=== PATIENT | female | born 1955 | race Caucasian/White ===

== ENCOUNTER 2019-07-04 21:07 | Inpatient (IN) ==
[2019-07-04] MEDS ORDERED: DIPH,PERTUSS(ACELL),TET VAC/PF 0.5 ML SYRINGE IM ONE (21:28)
--- NOTE | 2019-07-04 21:30 | Emergency Department Note ---
Fall HPI - General Chief Complaint: Fall Stated Complaint: fall Time Seen by Provider: 07/04/19 21:24 Source: patient Mode of arrival: ambulatory - History of Present Illness HPI Narrative: 64-year-old female presents with right hip pain. Onset about an hour ago. She was trying to kill a spider when she kind of tripped and fell on the cement landing on her right hip. Has severe pain if she tries to ambulate or lift the right leg at all. Pain is primarily in her hip but does radiate down the right leg about residential down her thigh. No numbness or tingling. Did not hit her head. No loss consciousness. No head, neck, or back pain. No numbness or tingling. No treatments prior to arrival. She does have a small abrasion to the right hand which she cleaned and put a Band-Aid on at home. Unknown last tetanus. - Related Data Home Medications Medication Instructions Recorded Confirmed No Known Home Meds 07/04/19 07/04/19 Allergies Allergy/AdvReac Type Severity Reaction Status Date / Time codeine AdvReac Mild Vomiting Verified 07/05/19 05:49 Review of Systems All systems ED: reviewed and negative except as stated. 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 Absent: conjunctival injection ENT: Present: mucous membranes moist Chest: Present: symmetric chest wall rise Respiratory: Present: normal lung sounds bilaterally. Absent: respiratory distress, rales/crackles, wheezes, accessory muscle use Cardiovascular: Present: regular rate, normal heart sounds Extremities: Present: normal inspection, tenderness (righ hip pain, difuse. pain with any Movement active and passive and greatly limited active and passive range of motion related to pain. No step-off or deformity. No shortening or rotation.), normal capillary refill. Absent: joint swelling Neurological: Present: alert, oriented X3. Absent: normal gait, motor sensory deficit Psychiatric: Present: normal affect, normal mood Skin: Present: warm, dry, normal color. Absent: intact (Nickel size superficial abrasion to the dorsal surface of the right hand) Course Course Narrative: @[address] Black due to shift change. pt does not want anything for pain at this time. 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 Vital Signs Pulse Rate 72 07/04/19 21:08 Respiratory Rate 18 07/04/19 21:08 Blood Pressure 147/80 07/04/19 21:08 Pulse Oximetry (%) 96 07/04/19 21:08 Temperature 97.9 F 07/05/19 08:00 Pulse Rate 69 07/05/19 08:00 Respiratory Rate 18 07/05/19 08:00 Blood Pressure 148/79 07/05/19 08:00 Pulse Oximetry (%) 92 07/05/19 08:00 Fall - Lab Data Result diagrams: 07/05/19 04:23 07/05/19 04:23 Lab Results 07/04/19 07/04/19 Range/Units 22:49 22:49 WBC 6.4 (4.5-11.0) K/mcL RBC 5.06 (4.00-5.20) M/mcL Hgb 16.4 H (12.0-15.0) g/dL Hct 48.6 H (36.0-48.0) % MCV 96.1 (80.0-100.0) fL MCH 32.4 (26.0-34.0) pg MCHC 33.7 (31.0-36.0) g/dL RDW 13.6 (11.5-14.5) % Plt Count 382 (140-440) K/mcL MPV 7.3 L (7.4-10.4) fL Gran % 61.9 (38.0-78.0) % Lymph % (Auto) 28.7 (15.5-49.0) % [place] % (Auto) 7.9 (1.0-12.0) % Eos % (Auto) 1.1 (0.0-7.0) % Baso % (Auto) 0.4 (0.0-2.0) % Gran # 3.9 (1.8-8.0) K/mcL Lymph # (Auto) 1.8 (1.5-4.8) K/mcL [place] # (Auto) 0.5 (0.1-0.9) K/mcL Eos # (Auto) 0.1 (0.0-0.7) K/mcL Baso # (Auto) 0 (0.0-0.3) K/mcL Sodium 138 (133-145) mmol/L Potassium 4.0 (3.3-5.1) mmol/L Chloride 95 L (96-108) mmol/L Carbon Dioxide 28 (22-30) mmol/L Anion Gap 15.0 (8-16) BUN 5 L (8-23) mg/dl Creatinine 0.6 (0.6-1.1) mg/dl GFR Calculation 96 Glucose 96 (70-105) mg/dL Calcium 9.4 (8.6-10.4) mg/dl Total Bilirubin 0.6 (0.0-1.0) mg/dL AST 17 (0-37) U/l ALT 13 (0-40) U/l Alkaline Phosphatase 73 (39-117) U/L Total Protein 7.8 (5.9-8.4) gm/dL Albumin 4.9 (3.2-5.2) gm/dL Globulin 2.9 (2.2-3.7) gm/dL Albumin/Globulin Ratio 1.7 (1.0-2.3) - Radiology Data Radiology results reviewed: Yes I reviewed the patient's radiology results. Disposition Pt seen by HAND KNITTER/PA only: No Clinical Impression: Fall, Right hip pain Disposition: Xfer As Inpt ([facility])
--- NOTE | 2019-07-04 22:35 | Emergency Department Note ---
ED Note Addendum Note Addendum: This patient has a subcapital hip fracture on the right on her CT scan. I discussed case with Dr. Murray and Dr. Estrada will admit to the hospital. We will initiate the preop work-up with labs chest x-ray EKG etc. Diagnosis is right hip fracture.
[2019-07-04] MEDS ORDERED: 0.9 % SODIUM CHLORIDE 250 ML IV SCH (22:45)
[2019-07-04 23:52] LABS: Basophils # (Auto) 0 K/mcL (0.0-0.3); Basophils % (Auto) 0.4 % (0.0-2.0); Eosinophils # (Auto) 0.1 K/mcL (0.0-0.7); Eosinophils % (Auto) 1.1 % (0.0-7.0); Granulocytes % (Auto) 61.9 % (38.0-78.0); Hematocrit 48.6 % (36.0-48.0); Hemoglobin 16.4 g/dL (12.0-15.0); Lymphocytes # (Auto) 1.8 K/mcL (1.5-4.8); Lymphocytes % (Auto) 28.7 % (15.5-49.0); Mean Cell Volume 96.1 fL (80.0-100.0); Mean Corpuscular HGB Conc 33.7 g/dL (31.0-36.0); Mean Platelet Volume 7.3 fL (7.4-10.4); Monocytes # (Auto) 0.5 K/mcL (0.1-0.9); Monocytes % (Auto) 7.9 % (1.0-12.0); Platelet Count 382 K/mcL (140-440); RBC 5.06 M/mcL (4.00-5.20); Red Cell Distribution Width 13.6 % (11.5-14.5); WBC 6.4 K/mcL (4.5-11.0)
[2019-07-05 00:09] LABS: ALT/SGPT 13 U/l (0-40); AST/SGOT 17 U/l (0-37); Albumin 4.9 gm/dL (3.2-5.2); Albumin/Globulin Ratio 1.7 (1.0-2.3); Alkaline Phosphatase 73 U/L (39-117); Bilirubin,Total 0.6 mg/dL (0.0-1.0); Blood Urea Nitrogen 5 mg/dl (8-23); Calcium 9.4 mg/dl (8.6-10.4); Carbon Dioxide 28 mmol/L (22-30); Chloride 95 mmol/L (96-108); Globulin 2.9 gm/dL (2.2-3.7); Glomerular Filtration Rate 96; Glucose 96 mg/dL (70-105)
[2019-07-05] MEDS ORDERED: traZODone HCL 50 MG TABLET PO PRN (00:29)
[2019-07-05] MEDS ORDERED: HYDROmorphone 2 MG/ML VIAL IV PRN (00:29)
[2019-07-05] MEDS ORDERED: POTASSIUM CHLORIDE 20 MEQ PACKET PO PRN (00:29)
[2019-07-05] MEDS ORDERED: MAGNESIUM SULFATE 2 GM/50 ML BAG IV PRN (00:29)
[2019-07-05] MEDS ORDERED: ONDANSETRON 4 MG/2 ML VIAL IV PRN ×2 (00:29→15:54)
[2019-07-05] MEDS ORDERED: guaiFENesin/CODEINE 10 ML UDC PO PRN (00:29)
[2019-07-05] MEDS ORDERED: ACETAMINOPHEN 750 MG/75 ML BOTTLE IV PRN (00:29)
[2019-07-05] MEDS ORDERED: hydrALAZINE 20 MG/ML VIAL IV PRN (00:29)
[2019-07-05] MEDS ORDERED: ACETAMINOPHEN 325 MG TABLET PO PRN (00:29)
[2019-07-05] MEDS: 0.9 % SODIUM CHLORIDE 1,000 ML IV SCH ×2 (01:12→17:50)
[2019-07-05 05:45] LABS: Hematocrit 45.1 % (36.0-48.0); Hemoglobin 15.1 g/dL (12.0-15.0); Mean Cell Volume 97.1 fL (80.0-100.0); Mean Corpuscular HGB Conc 33.4 g/dL (31.0-36.0); Mean Platelet Volume 7.1 fL (7.4-10.4); Platelet Count 316 K/mcL (140-440); RBC 4.65 M/mcL (4.00-5.20); Red Cell Distribution Width 13.3 % (11.5-14.5)
[2019-07-05 06:00] LABS: ALT/SGPT 10 U/l (0-40); AST/SGOT 13 U/l (0-37); Albumin 4.1 gm/dL (3.2-5.2); Albumin/Globulin Ratio 1.8 (1.0-2.3); Alkaline Phosphatase 65 U/L (39-117); Bilirubin,Direct < 0.2 mg/dL (0.0-0.3); Bilirubin,Total 0.8 mg/dL (0.0-1.0); Blood Urea Nitrogen 6 mg/dl (8-23); Calcium 9.1 mg/dl (8.6-10.4); Carbon Dioxide 29 mmol/L (22-30); Chloride 101 mmol/L (96-108); Globulin 2.3 gm/dL (2.2-3.7); Glomerular Filtration Rate 102; Glucose 90 mg/dL (70-105); Lactate Dehydrogenase 165 U/L (94-250); Phosphorous 3.7 mg/dL (2.7-4.5); Triglycerides 52 mg/dl (<150); Uric Acid 4.2 mg/dL (2.5-8.0)
[2019-07-05 06:15] LABS: Band Neutrophils % 1 % (0-10); Eosinophils % (Manual) 4 % (0-7); Lymphocytes % 17 % (15-49); Monocytes % (Manual) 14 % (1-12); Platelet Estimate NORMAL (NORMAL); RBC Morphology NORMAL (NORMAL); Segmented Neutrophils % 64 % (38-78)
[2019-07-05] MEDS: 0.9 % SODIUM CHLORIDE 10 ML SYRINGE IV SCH ×3 (06:54→22:19)
[2019-07-05] MEDS: MULTIVIT,THER IRON,CA,FA & MIN 1 TABLET PO SCH (07:07)
[2019-07-05] MEDS: DOCUSATE SODIUM 100 MG CAPSULE PO SCH ×2 (07:07→21:15)
[2019-07-05] MEDS: HEPARIN 5,000 UNIT/ML VIAL SQ SCH ×2 (07:26→21:35)
--- NOTE | 2019-07-05 07:47 | XRay Report ---
HISTORY: Fell with right hip pain FINDINGS: There is an acute subcapital fracture in the right femoral neck. There is mild impaction along the lateral side. The femoral head is normally positioned within the acetabulum. There is no arthritis. The remainder of the pelvis is normal with no other fracture present. There is degenerative disc disease and arthritis in the lumbar spine at L4-5 and L5-S1. IMPRESSION: nondisplaced subcapital fracture of the right femoral neck Interpreted and Authenticated by: Regulo Dias 07/05/19
--- NOTE | 2019-07-05 07:50 | Cat Scan Report ---
History: Fell with right hip pain and fracture femoral neck TECHNIQUE: The pelvis was imaged without contrast at 2.5 mm intervals. Sagittal and coronal reformats were created. Radiation exposure was limited using dose reduction technology. FINDINGS: There is a subtle acute subcapital fracture the right femoral neck. There is mild impaction along the lateral side. Femoral head is slightly rotated. The joint space is normal in width. There is no spur formation or bone erosion. There is edema or hematoma around the fracture line. No other pelvic fracture is present. There is moderately severe disc space narrowing with spur formation at L4-5 and L5-S1. Left hip is normal. SI joints are normal. There is mild arthritis at the symphysis pubis. There are are scattered diverticula in the sigmoid colon. Uterus and ovaries are atrophic. IMPRESSION: Nondisplaced subcapital fracture of the right femoral neck Interpreted and Authenticated by: Regulo Dias 07/05/19
--- NOTE | 2019-07-05 09:22 | Internal Med History&Physical ---
Medical - H&P: HPI Patient information: Note initiated : 07/04/19 at 23:22 pm Service Date, if different from initiated Date: [] Patient: Raegan Flowers 64 y/o F admitted on 07/05/19 for Fall. Chief Complaint: [] Chief complaint: Fall with right hip pain History of present illness: Ms. Flowers is a 64 year old F who presented to the ER after sustaining a fall landing on her right side. Patient was with her daughter enjoying the evening when she saw a spider and while attempting to swap with a flip-flop fell backwards landing on her hip. She did not sustain any other injuries or trauma to the head. She was brought into the ER. Initial work-up was consistent with right hip fracture. Orthopedics were consulted. Initial labs were unremarkable with a hemoglobin of 16.4 creatinine 1.5. Patient carries a history of pack and a half smoking but does not carry any prior major medical history or history of surgeries, CVA or coronary artery disease. She occasionally drinks alcohol. Is fairly independent at baseline She denies recent hospitalizations She denies substance abuse or changes in medication. Denies fever chills or precipitating events prior to fall including lighth eadedness dizziness chest pain or palpitation Review of systems A 10 point review system was performed and is negative except for as above Medical - H&P: PMH Medical history: Nonsignificant Except for aortic aneurysm Surgical history: Hysterectomy Tonsillectomy Smoking status: Current every day smoker (Back and a half) Drug use: none Alcohol use: sober Medical - H&P: Meds Home Medications Medication Instructions Recorded Confirmed Type No Known Home Meds 07/04/19 07/04/19 History Allergies Allergy/AdvReac Type Severity Reaction Status Date / Time codeine AdvReac Mild Vomiting Verified 07/05/19 05:49 Medical - H&P: Exam - Constitutional Vitals: Temp Pulse Resp BP Pulse Ox 97.9 F 69 18 148/79 92 07/05/19 08:00 07/05/19 08:00 07/05/19 08:00 07/05/19 08:00 07/05/19 08:00 General appearance: no acute distress Exam: Alert and oriented Head normocephalic Oral cavity dry No ear nose discharge Eye movement symmetrical Neck no lymph adenopathy S1-S2 regular rhythm no murmur Diminished breath sounds bases Abdomen soft nontender Lower extremity no cyanosis clubbing, right lower extremity externally rotated and shortened Skin no suspicious lesion Psych alert cooperative Neuro nonfocal Medical - H&P: Reslt - Labs CBC & Chem 7: 07/05/19 04:23 07/05/19 04:23 Labs: Short CBC 07/04/19 07/05/19 Range/Units 22:49 04:23 WBC 6.4 8.0 (4.5-11.0) K/mcL Hgb 16.4 H 15.1 H (12.0-15.0) g/dL Hct 48.6 H 45.1 (36.0-48.0) % Plt Count 382 316 (140-440) K/mcL BMP 07/04/19 07/05/19 22:49 04:23 Sodium 138 141 Potassium 4.0 4.1 Chloride 95 L 101 Carbon Dioxide 28 29 BUN 5 L 6 L Creatinine 0.6 0.5 L Glucose 96 90 Calcium 9.4 9.1 Liver Function 07/04/19 07/05/19 Range/Units 22:49 04:23 Total Bilirubin 0.6 0.8 (0.0-1.0) mg/dL Direct Bilirubin < 0.2 (0.0-0.3) mg/dL GGT 15 (5-36) U/L AST 17 13 (0-37) U/l ALT 13 10 (0-40) U/l Alkaline Phosphatase 73 65 (39-117) U/L Albumin 4.9 4.1 (3.2-5.2) gm/dL Medical - H&P: A/P (1) Closed right hip fracture Current visit: Yes Status: Acute * Closed right hip fracture-orthopedic consulted. Keep n.p.o. after midnight * Pain management-continue as needed opioids * Preoperative risk evaluation-based on RCRI [place] Heart Association stratification patient would fall under high risk category based on surgery specific risk however patient does not carry history of coronary artery disease/CVA/insulin-dependent diabetes or renal insufficiency. She has an excellent baseline functional status. He would be a great postoperative rehab candidate. There are no modifiable risk factor at this time. Patient agrees to proceed with surgery. Surgery and anesthesia specific risks will be discussed by individual care providers. * CODE STATUS full code * Prophylaxis will be as per orthopedics per protocol post hip replacement Plan * Inpatient admission * Pain management * Keep n.p.o. * Review postop * Aggressive postop PT OT/nutrition support
--- NOTE | 2019-07-05 09:32 | Internal Med Progress Note ---
Medical - PN: Subj Patient information: Note initiated : 07/05/19 at 9:30 am Service Date, if different from initiated Date: [] Patient: Raegan Flowers 64 y/o F admitted on 07/05/19 for Fall. Chief Complaint: [] Interval history: Ms. Flowers is a 64 year old F who presented to the ER after sustaining a fall landing on her right side. Patient was with her daughter enjoying the evening when she saw a spider and while attempting to swap with a flip-flop fell backwards landing on her hip. She did not sustain any other injuries or trauma to the head. She was brought into the ER. Initial work-up was consistent with right hip fracture. Orthopedics were consulted. Initial labs were unremarkable with a hemoglobin of 16.4 creatinine 1.5. Patient carries a history of pack and a half smoking but does not carry any prior major medical history or history of surgeries, CVA or coronary artery disease. She occasionally drinks alcohol. Patient recently lost her brother and is going to acute brief episode. She relapsed back on smoking after quitting for 20 days due to stress. She is fairly independent at baseline able to perform activities of daily living herself. She denies recent hospitalizations She denies substance abuse or changes in medication. Denies fever chills or precipitating events prior to fall including lightheadedness dizziness chest pain or palpitation 07/04-patient doing well. On as needed opioids with pain well controlled. Await surgery this afternoon. Daughter at bedside. Minimal anxiety. No overnight concerns per staff - Constitutional Vitals: Vital Signs Temp Pulse Resp BP Pulse Ox 97.9 F 69 18 148/79 92 07/05/19 08:00 07/05/19 08:00 07/05/19 08:00 07/05/19 08:00 07/05/19 08:00 Period Temp Pulse Resp BP Sys/Youngblood Pulse Ox Last 24 Hr 97.7 F-99.2 F 64-72 - 131-162/78-90 92-96 Intake and Output 07/04/19 07/05/19 07/05/19 21:59 05:59 13:59 Output Total 950 Balance -950 Weight 110 lb 112 lb 1.6 oz Intake & Output: Intake & Output 07/04/19 07/05/19 07/05/19 21:59 05:59 13:59 Output Total 950 Balance -950 Weight 110 lb 112 lb 1.6 oz Output: Urine Catheter Amount 950 Other: Urine Appearance Clear Uretheral (Paige) Clear Urine Color Uretheral (Paige) Pale General appearance: no acute distress Exam: Minimal anxiety No lymphedema Chest clear to auscultation Nonlabored breathing Medical - PN: Obj Da - Labs CBC & Chem 7: 07/05/19 04:23 07/05/19 04:23 Labs: Abnormal Lab Results 07/05/19 07/05/19 07/04/19 04:23 04:23 22:49 Hgb 15.1 H Hct MPV 7.1 L Monocytes % (Manual) 14 H Chloride 95 L BUN 6 L 5 L Creatinine 0.5 L 07/04/19 22:49 Hgb 16.4 H Hct 48.6 H MPV 7.3 L Monocytes % (Manual) Chloride BUN Creatinine Meds: Medications Acetaminophen (Tylenol) 650 mg PO Q4-6HP PRN PRN Reason: PAIN/FEVER > 101 Docusate Sodium (Colace) 100 mg PO BID [facility] Last Admin: 07/05/19 07:07 Dose: Not Given Documented by: Guaifenesin/Codeine Phosphate (Robitussin Ac) 10 ml PO Q4HP PRN PRN Reason: Cough Heparin Sodium (Porcine) (Heparin) 5,000 unit SQ Q12 [facility] Last Admin: 07/05/19 07:26 Dose: Not Given Documented by: Hydralazine HCl (Apresoline) 10 mg IV Q4-6HP PRN PRN Reason: Hypertension Hydromorphone HCl (Dilaudid) 0 mg IV Q4HP PRN PRN Reason: PAIN LEVEL > 6 Sodium Chloride (Sodium Chloride 0.9%) 1,000 mls @ 50 mls/hr IV .Q20H [facility] Stop: 07/07/19 12:28 Last Admin: 07/05/19 01:12 Dose: 50 mls/hr Documented by: Acetaminophen (Ofirmev) 750 mg in 75 mls @ 150 mls/hr IV Q6HP PRN PRN Reason: PAIN/FEVER > 101 Magnesium Sulfate (Magnesium Sulfate) 2 gm in 50 mls @ 50 mls/hr IV UD PRN PRN Reason: MG = or < 1.7 Iron Carb/Multivit/[employer]ista/Folic Acid (Multivitamin W/Minerals) 1 tab PO DAILY [facility] Last Admin: 07/05/19 07:07 Dose: Not Given Documented by: Ondansetron HCl (Zofran) 4 mg IV Q4-6HP PRN PRN Reason: Nausea And Vomiting Potassium Chloride (Klor-Con) 40 meq PO DAILYP PRN PRN Reason: K+ < 3.5 Senna/Docusate Sodium (Senna Plus Tablet) 1 tab PO HS [facility] Sodium Chloride (Saline Flush) 10 ml IV Q8 [facility] Last Admin: 07/05/19 06:54 Dose: Not Given Documented by: Trazodone HCl (Desyrel) 50 mg PO HSP PRN PRN Reason: Insomnia Medical - PN: A/P - Time Spent With Patient Total time spent is greater than 50% in coordination of care (as documented) at patient's floor/unit and/or counseling patient: 15 - 24 minutes (1) Closed right hip fracture Status: Acute Assessment and plan: * Closed right hip fracture-orthopedic consulted. Surgery this afternoon. * Pain management-well controlled on as needed opioids * Preoperative risk evaluation-based on RCRI [place] Heart Association stratification patient would fall under high risk category based on surgery specific risk however patient does not carry history of coronary artery disease/CVA/insulin-dependent diabetes or renal insufficiency. She has an excellent baseline functional status. He would be a great postoperative rehab candidate. There are no modifiable risk factor at this time. Patient agrees to proceed with surgery. Surgery and anesthesia specific risks will be discussed by individual care providers. * CODE STATUS full code * Prophylaxis will be as per orthopedics per protocol post hip replacement Plan * Continue pain management * Keep n.p.o. * Await surgery * Target aggressive postop PT OT/nutrition support Current Visit: Yes
[2019-07-05] MEDS ORDERED: LORazepam 2 MG/ML VIAL IV PRN (11:11)
[2019-07-05] MEDS ORDERED: ceFAZolin 2 GM in DEXTROSE 5% IN WATER 50 ML IV SCH (14:15)
[2019-07-05] MEDS ORDERED: KETAMINE 100 MG/ML ML IV ONE (14:55)
[2019-07-05] MEDS ORDERED: LIDOCAINE HCL/PF 100 MG/5 ML SYRINGE IV ONE (14:55)
[2019-07-05] MEDS ORDERED: DEXAMETHASONE 10 MG/ML VIAL IV ONE (14:55)
[2019-07-05] MEDS ORDERED: GLYCOPYRROLATE 0.2 MG/ML VIAL IV ONE (14:55)
[2019-07-05] MEDS ORDERED: MIDAZOLAM 2 MG/2 ML VIAL IV ONE (14:55)
[2019-07-05] MEDS ORDERED: fentaNYL 100 MCG/2 ML VIAL IV ONE (14:55)
[2019-07-05] MEDS ORDERED: PROPOFOL 200 MG/20 ML VIAL IV ONE (14:55)
[2019-07-05] MEDS ORDERED: ONDANSETRON 4 MG/2 ML VIAL IV ONE (14:55)
--- NOTE | 2019-07-05 15:38 | Brief Operative Note ---
Date of procedure: 07/05/19 Pre-op diagnosis: R nondisplaced femoral neck fracture Post-op diagnosis: same Procedure: Percutaneous screw fixation of Right femoral neck fracture Grafts/Implants: Yes (3 6.5mm screws) Anesthesia: GLMA Findings: nondisplaced fracture Complications: none Surgeon: Khadar Murray [employer] Salesperson: Chris Burrows Estimated blood loss (cc): 20 Specimens Removed/Pathology: none sent Condition: stable Disposition: PACU
[2019-07-05] MEDS ORDERED: oxyCODONE/APAP 5/325MG TABLET PO PRN (15:45)
[2019-07-05] MEDS ORDERED: METHOCARBAMOL 1,000 MG/10 ML VIAL IV PRN (15:54)
[2019-07-05] MEDS ORDERED: LACTATED RINGERS 250 ML IV PRN (15:54)
[2019-07-05] MEDS ORDERED: ACETAMINOPHEN 1,000 MG/100 ML BOTTLE IV ONE (15:54)
[2019-07-05] MEDS ORDERED: BENZOCAINE/MENTHOL 1 LOZENGE PO PRN (15:54)
[2019-07-05] MEDS ORDERED: KETOROLAC 30 MG/ML VIAL IV PRN (15:54)
[2019-07-05] MEDS ORDERED: NALOXONE HCL 0.4 MG/ML VIAL IV PRN (15:54)
[2019-07-05] MEDS ORDERED: FLUMAZENIL 0.1 MG/ML ML IV PRN (15:54)
[2019-07-05] MEDS ORDERED: fentaNYL 100 MCG/2 ML VIAL IV PRN (15:54)
[2019-07-05] MEDS ORDERED: IPRATROPIUM/ALBUTEROL 3 ML AMPUL.NEB NEB PRN (15:54)
[2019-07-05] MEDS ORDERED: LACTATED RINGERS 1,000 ML IV SCH (16:00)
--- NOTE | 2019-07-05 16:05 | Operative Note ---
DATE OF OPERATION: 07/05/2019 PREOPERATIVE DIAGNOSIS: Right closed nondisplaced femoral neck fracture. POSTOPERATIVE DIAGNOSIS: Right closed nondisplaced femoral neck fracture. PROCEDURE PERFORMED: Percutaneous screw fixation of the right nondisplaced femoral neck fracture, placing three 6.5 mm cannulated screws. SURGEON: Khadar Murray M.D. DEPUTY FELONY CLERK: Barry Burrows PA-C. The PA's assistance was required for the safe and efficient completion of the entire case. This provider's expertise and technical skill were required throughout the case. The PA assisted with preoperative coordination, intraoperative retraction, wound closure, dressing and splint application, as well as postoperative documentation and care coordination. ANESTHESIA: General. DRAINS: None. SPECIMENS: None. COMPLICATIONS: None. BLOOD LOSS: 20 mL. POSTOPERATIVE CONDITION: Stable. INDICATIONS FOR SURGERY: This is a 64-year-old female who fell, injuring her right hip, and had difficulty bearing weight. She was taken to the emergency department last night and x-rays showed questionable fracture and a CT scan verified a nondisplaced femoral neck. FINDINGS AT SURGERY: As above. Post-screw fixation showed satisfactory hardware position and fracture alignment. PROCEDURE IN DETAIL: The patient had been seen preoperatively and informed consent had been obtained after discussion of risks and benefits of surgery. Risks including, but not limited to, bleeding; infection; injury to nerves, blood vessels, and other surrounding structures; anesthetic risks; nonunion or malunion of the fracture; failure of hardware fixation; possibility of developing avascular necrosis resulting in need for total hip arthroplasty in the future. She understood and wished to proceed. Correct operative site was marked, and the patient was taken to the operating room and general anesthesia induced. She was carefully positioned on the [place] table, and the right leg was placed in some gentle traction and slight internal rotation. Fluoro was brought in to verify fracture alignment and then the right hip was prepped and draped in normal sterile fashion. A time-out was performed verifying patient name, operative site, and plan. Shower curtain was used to cover skin surfaces and then using fluoroscopy, an entry point was chosen distal to the greater trochanter and proximal to the lower margin of the lesser trochanter. This was placed centered on the bone and then passed up along the inferior femoral neck and into the inferior femoral head. We checked lateral views and positioned the pin as central as possible. We then used the honeycomb drill guide and placed our two proximal pins, one posterior proximal and one anterior proximal. We verified pin placement on both views and then used depth gauge and placed three 6.5 cannulated screws. The two proximal screws did have to be switched out for 5 mm shorter. These were encroaching awfully close to the articular surface. Once we had all three in the position that we liked, we saved these views. Irrisept was irrigated, after a minute saline was irrigated, and then 2-0 Monocryl was used for subcutaneous and abel for skin. Local anesthetic injected. Sterile dressing was applied. The patient was then awakened, extubated, and transferred to recovery in stable condition. BJB:baron Job ID: [id number] Doc ID: [id number] Khadar Murray MD
[2019-07-05] MEDS ORDERED: WARFARIN 2.5 MG TABLET PO ONE (18:00)
[2019-07-05] MEDS ORDERED: SENNOSIDES/DOCUSATE SODIUM 1 TAB TABLET PO SCH (21:00)
[2019-07-05] MEDS: ceFAZolin 2 GM in DEXTROSE 5% IN WATER 50 ML IV SCH (23:10)
[2019-07-06] MEDS ORDERED: ceFAZolin 1 GM VIAL ONE ×2 (01:40→06:29)
[2019-07-06 05:40] LABS: Hematocrit 44.3 % (36.0-48.0); Hemoglobin 14.7 g/dL (12.0-15.0); Mean Cell Volume 97.7 fL (80.0-100.0); Mean Corpuscular HGB Conc 33.3 g/dL (31.0-36.0); Mean Platelet Volume 7.2 fL (7.4-10.4); Platelet Count 319 K/mcL (140-440); RBC 4.53 M/mcL (4.00-5.20); Red Cell Distribution Width 13.2 % (11.5-14.5)
[2019-07-06 05:55] LABS: ALT/SGPT 8 U/l (0-40); AST/SGOT 12 U/l (0-37); Albumin 3.4 gm/dL (3.2-5.2); Albumin/Globulin Ratio 1.4 (1.0-2.3); Alkaline Phosphatase 67 U/L (39-117); Bilirubin,Direct < 0.2 mg/dL (0.0-0.3); Bilirubin,Total 0.6 mg/dL (0.0-1.0); Blood Urea Nitrogen 6 mg/dl (8-23); Calcium 8.5 mg/dl (8.6-10.4); Carbon Dioxide 27 mmol/L (22-30); Chloride 98 mmol/L (96-108); Globulin 2.5 gm/dL (2.2-3.7); Glomerular Filtration Rate 102; Glucose 137 mg/dL (70-105); Lactate Dehydrogenase 169 U/L (94-250); Phosphorous 4.2 mg/dL (2.7-4.5); Triglycerides 86 mg/dl (<150); Uric Acid 3.2 mg/dL (2.5-8.0)
[2019-07-06] MEDS: 0.9 % SODIUM CHLORIDE 10 ML SYRINGE IV SCH ×2 (06:43→13:04)
[2019-07-06] MEDS: ceFAZolin 2 GM in DEXTROSE 5% IN WATER 50 ML IV SCH (06:43)
[2019-07-06 06:47] LABS: Band Neutrophils % 2 % (0-10); Lymphocytes % 7 % (15-49); Monocytes % (Manual) 3 % (1-12); Platelet Estimate NORMAL (NORMAL); RBC Morphology NORMAL (NORMAL); Segmented Neutrophils % 88 % (38-78)
[2019-07-06] MEDS: 0.9 % SODIUM CHLORIDE 1,000 ML IV SCH (06:48)
[2019-07-06] MEDS ORDERED: diphenhydrAMINE 25 MG CAPSULE PO PRN (08:39)
[2019-07-06] MEDS: MULTIVIT,THER IRON,CA,FA & MIN 1 TABLET PO SCH (10:10)
[2019-07-06] MEDS: DOCUSATE SODIUM 100 MG CAPSULE PO SCH (10:10)
--- NOTE | 2019-07-06 11:04 | Internal Med Progress Note ---
Medical - PN: Subj Patient information: Note initiated : 07/06/19 at 11:04 am Service Date, if different from initiated Date: [] Patient: Raegan Flowers 64 y/o F admitted on 07/05/19 for Fall. Chief Complaint: [] Interval history: Ms. Flowers is a 64 year old F who presented to the ER after sustaining a fall landing on her right side. Patient was with her daughter enjoying the evening when she saw a spider and while attempting to swap with a flip-flop fell backwards landing on her hip. She did not sustain any other injuries or trauma to the head. She was brought into the ER. Initial work-up was consistent with right hip fracture. Orthopedics were consulted. Initial labs were unremarkable with a hemoglobin of 16.4 creatinine 1.5. Patient carries a history of pack and a half smoking but does not carry any prior major medical history or history of surgeries, CVA or coronary artery disease. She occasionally drinks alcohol. Patient recently lost her brother and is going to acute brief episode. She relapsed back on smoking after quitting for 20 days due to stress. She is fairly independent at baseline able to perform activities of daily living herself. She denies recent hospitalizations She denies substance abuse or changes in medication. Denies fever chills or precipitating events prior to fall including lightheadedness dizziness chest pain or palpitation 07/05-patient doing well. On as needed opioids with pain well controlled. Await surgery this afternoon. Daughter at bedside. Minimal anxiety. No overnight concerns per staff 07/06-postoperative day 1. Patient ambulating. Tolerating diet. Pain in good control. No anxiety. Anticipate discharge once cleared by orthopedics. No further recommendations from hospitalist service. - Constitutional Vitals: Vital Signs Temp Pulse Resp BP Pulse Ox 97.8 F 65 18 141/62 95 07/06/19 08:00 07/06/19 08:00 07/06/19 08:00 07/06/19 08:00 07/06/19 08:00 Period Temp Pulse Resp BP Sys/Youngblood Pulse Ox Last 24 Hr 97.2 F-98.6 F 54-84 14-20 108-175/54-85 88-100 Intake and Output 07/05/19 07/06/19 07/06/19 21:59 05:59 13:59 Intake Total 3432 300 300 Output Total 480 1250 600 Balance 2952 -950 -300 Weight 118 lb 3.2 oz Intake & Output: Intake & Output 07/05/19 07/06/19 07/06/19 21:59 05:59 13:59 Intake Total 3432 300 300 Output Total 480 1250 600 Balance 2952 -950 -300 Weight 118 lb 3.2 oz Intake: IV 2232 Sodium Chloride 0.9% 1,000 ml @ 832 50 mls/hr IV .Q20H [facility] Rx#: [id number] Lactated Ringers 1,000 ml @ 20 1300 mls/hr IV .Q24H [facility] Rx#: [id number] Oral 1200 300 300 Output: Urine Catheter Amount 450 1250 600 Estimated Blood Loss 30 Other: Meal Dinner Breakfast Percent of Meal Consumed 100% 100% Feeding Ability Independent Independent Urine Appearance Clear Uretheral (Paige) Clear Urine Color Dark Yellow Uretheral (Paige) Straw General appearance: no acute distress Exam: Alert oriented Nonlabored breathing no anxiety no significant postoperative Site pain or swelling Medical - PN: Obj Da - Labs CBC & Chem 7: 07/06/19 04:10 07/06/19 04:10 Labs: Abnormal Lab Results 07/06/19 07/06/19 07/05/19 04:10 04:10 04:23 Hgb Hct MPV 7.2 L Seg Neutrophils % 88 H Lymphocytes % 7 L Monocytes % (Manual) Chloride BUN 6 L 6 L Creatinine 0.5 L 0.5 L Glucose 137 H Calcium 8.5 L 07/05/19 07/04/19 07/04/19 04:23 22:49 22:49 Hgb 15.1 H 16.4 H Hct 48.6 H MPV 7.1 L 7.3 L Seg Neutrophils % Lymphocytes % Monocytes % (Manual) 14 H Chloride 95 L BUN 5 L Creatinine Glucose Calcium Meds: Medications Acetaminophen (Tylenol) 650 mg PO Q4-6HP PRN PRN Reason: PAIN/FEVER > 101 Diphenhydramine HCl (Benadryl) 50 mg PO Q4-6HP PRN PRN Reason: Allergic Symptoms Docusate Sodium (Colace) 100 mg PO BID [facility] Last Admin: 07/06/19 10:10 Dose: 100 mg Documented by: Guaifenesin/Codeine Phosphate (Robitussin Ac) 10 ml PO Q4HP PRN PRN Reason: Cough Hydralazine HCl (Apresoline) 10 mg IV Q4-6HP PRN PRN Reason: Hypertension Hydromorphone HCl (Dilaudid) 0 mg IV Q4HP PRN PRN Reason: PAIN LEVEL > 6 Last Admin: 07/05/19 13:47 Dose: 0.5 mg Documented by: Sodium Chloride (Sodium Chloride 0.9%) 1,000 mls @ 50 mls/hr IV .Q20H [facility] Stop: 07/07/19 12:28 Last Admin: 07/06/19 06:48 Dose: Not Given Documented by: Acetaminophen (Ofirmev) 750 mg in 75 mls @ 150 mls/hr IV Q6HP PRN PRN Reason: PAIN/FEVER > 101 Last Admin: 07/05/19 12:28 Dose: 150 mls/hr Documented by: Magnesium Sulfate (Magnesium Sulfate) 2 gm in 50 mls @ 50 mls/hr IV UD PRN PRN Reason: MG = or < 1.7 Iron Carb/Multivit/Stone/Folic Acid (Multivitamin W/Minerals) 1 tab PO DAILY [facility] Last Admin: 07/06/19 10:10 Dose: 1 tab Documented by: Lorazepam (Ativan) 0.5 mg IV Q4-6HP PRN PRN Reason: Cramping Ondansetron HCl (Zofran) 4 mg IV Q4-6HP PRN PRN Reason: Nausea And Vomiting Oxycodone/Acetaminophen (Percocet 5-325 Mg) 1 tab PO Q4HP PRN PRN Reason: PAIN LEVEL 3-6 Potassium Chloride (Klor-Con) 40 meq PO DAILYP PRN PRN Reason: K+ < 3.5 Senna/Docusate Sodium (Senna Plus Tablet) 1 tab PO HS [facility] Last Admin: 07/05/19 21:15 Dose: 1 tab Documented by: Sodium Chloride (Saline Flush) 10 ml IV Q8 [facility] Last Admin: 07/06/19 06:43 Dose: Not Given Documented by: Trazodone HCl (Desyrel) 50 mg PO HSP PRN PRN Reason: Insomnia Warfarin Sodium (Coumadin Per Pharmacy) 1 order PO [facility] Medical - PN: A/P - Time Spent With Patient Total time spent is greater than 50% in coordination of care (as documented) at patient's floor/unit and/or counseling patient: less than 15 minutes (1) Closed right hip fracture Status: Acute Assessment and plan: * Closed right hip fracture-postop day 1. Managed by orthopedics * Pain management-well controlled on as needed opioids * History of tobacco dependence-counseled * CODE STATUS full code * Prophylaxis will be as per orthopedics per protocol post hip replacement Plan * Postop care per orthopedics * Discharge planning per orthopedics Current Visit: Yes
--- NOTE | 2019-07-06 11:24 | Orthopedic Progress Note ---
Orthopedics - Auxillary Note - Subjective Patient Information: Note initiated : 07/06/19 at 11:22 am Service Date, if different from initiated Date: [] Patient: Raegan Flowers 64 y/o F admitted on 07/05/19 for Fall. Chief Complaint: No c/o. Pt ready for discharge. nvi-distal bandages c/d/i Vital Signs Temp Pulse Resp BP Pulse Ox 07/06/19 08:00 97.8 F 65 18 141/62 95 07/06/19 04:09 97.2 F 54 L 18 127/72 95 07/05/19 23:51 97.4 F 60 16 130/76 96 07/05/19 19:42 97 07/05/19 19:34 98.6 F 67 16 135/72 97 07/05/19 18:08 60 07/05/19 17:45 60 20 175/84 95 07/05/19 17:30 59 L 20 165/80 90 07/05/19 17:15 75 20 169/85 89 L 07/05/19 17:00 70 20 150/82 89 L 07/05/19 16:45 79 20 88 L 07/05/19 16:35 97.3 F 69 16 151/82 95 07/05/19 16:20 97.2 F 84 16 142/71 96 07/05/19 16:05 97.7 F 57 L 15 139/65 100 07/05/19 16:00 57 L 14 116/60 100 07/05/19 15:55 59 L 15 108/54 100 07/05/19 15:50 97.3 F 65 16 118/57 100 07/05/19 12:00 98.2 F 18 Intake and Output 07/05/19 07/06/19 07/06/19 21:59 05:59 13:59 Intake Total 3432 300 300 Output Total 480 1250 600 Balance 2952 -950 -300 Intake: IV 2232 Sodium Chloride 0.9% 1,000 ml @ 832 50 mls/hr IV .Q20H [facility] Rx#: [id number] Lactated Ringers 1,000 ml @ 20 1300 mls/hr IV .Q24H [facility] Rx#: [id number] Oral 1200 300 300 Output: Urine Catheter Amount 450 1250 600 Estimated Blood Loss 30 Other: Meal Dinner Breakfast Percent of Meal Consumed 100% 100% Feeding Ability Independent Independent Urine Appearance Clear Uretheral (Paige) Clear Urine Color Dark Yellow Uretheral (Paige) Straw Weight 118 lb 3.2 oz Laboratory Results - last 24 hr 07/06/19 07/06/19 07/06/19 04:10 04:10 04:10 WBC 8.0 RBC 4.53 Hgb 14.7 Hct 44.3 MCV 97.7 MCH 32.5 MCHC 33.3 RDW 13.2 Plt Count 319 MPV 7.2 L Total Counted 100 Seg Neutrophils % 88 H Band Neutrophils % 2 Lymphocytes % 7 L Monocytes % (Manual) 3 Platelet Estimate Normal RBC Morphology Normal PT 13.0 INR 1.0 Sodium 135 Potassium 4.3 Chloride 98 Carbon Dioxide 27 Anion Gap 10.0 BUN 6 L Creatinine 0.5 L GFR Calculation 102 Glucose 137 H Uric Acid 3.2 Calcium 8.5 L Phosphorus 4.2 Magnesium 2.1 Total Bilirubin 0.6 Direct Bilirubin < 0.2 GGT 13 AST 12 ALT 8 Alkaline Phosphatase 67 Lactate Dehydrogenase 169 Total Protein 5.9 Albumin 3.4 Globulin 2.5 Albumin/Globulin Ratio 1.4 Triglycerides 86 1 day s/p r hip perc pinning-stable mobilize with PT Pt ready for discharge f/u at [facility] 2 weeks. Weight bear as tolerated. Daily dry dressing changes. Coumadin x 30 days.
== END 2019-07-06 14:05 | disposition home or self-care (01) | DRG 482 ==
LOC: ED 21:07 → MEDSUR 07-05 00:13
PROVIDERS: ADMIT Internal Medicine; ATTEND Internal Medicine